=== PATIENT | male | born 1940 | race Two or more races ===

== ENCOUNTER 2023-07-13 13:42 | Emergency (ER) | payer MEDICARE ==
[2023-07-13] MEDS ORDERED: EPINEPHrine 1:10,000 [1 MG/10 ML] SYRINGE IVP ONE (13:46)
[2023-07-13] MEDS ORDERED: ATROPINE SULFATE 0.1 MG/ML 10 ML SYRINGE IVP ONE (13:46)
[2023-07-13] MEDS ORDERED: AMIODARONE HCL 50 MG/ML 3 ML VIAL IV ONE (13:46)
[2023-07-13] MEDS ORDERED: SODIUM BICARBONATE [ADULT] 8.4% 50 MEQ/50 ML SYRINGE IVP ONE (13:46)
[2023-07-13] MEDS ORDERED: CALCIUM CHLORIDE 100 MG/ML 10 ML SYRINGE IVP ONE (13:46)
[2023-07-13 14:25] LABS: ANION GAP 18 mmol/L (8-16); CALCIUM, TOTAL 7.3 mg/dL (8.8-10.5); CARBON DIOXIDE 12 mmol/L (22-29); CHLORIDE 116 mmol/L (98-107); CREATININE 0.95 mg/dL (0.60-1.30); GLOMERULAR FILTR. RATE CALC > 60 mL/min (>60); GLUCOSE,RANDOM 115 mg/dL (70-110); POTASSIUM 3.1 mmol/L (3.5-5.1); SODIUM SERUM 146 mmol/L (136-145); UREA NITROGEN, BLOOD 28 mg/dL (7-18)
[2023-07-13 14:29] LABS: BILIRUBIN,TOTAL 0.7 mg/dL (0.1-1.0)
[2023-07-13 14:30] LABS: ALANINE AMINOTRANSFERASE 52 U/L (12-78); ALBUMIN 0.8 g/dL (3.4-5.0); ALKALINE PHOSPHATASE 44 U/L (46-116); ASPARTATE AMINOTRANSFERASE 79 U/L (15-37); TOTAL PROTEIN, SERUM 2.8 g/dL (6.4-8.2)
[2023-07-13 14:31] LABS: TROPONIN I-HIGH SENSITIVITY 93 ng/L (<76)
== END 2023-07-13 17:21 ==
LOC: EMS 13:45
DX: I46.9 Cardiac arrest, cause unspecified (principal)
CPT/HCPCS: 99291; 31500; 80053; 84484; 36415; 36680; 92950; J0282; J0461; J0171; J3490 ×2